=== PATIENT | female | born 2005 | race Caucasian/White ===

== ENCOUNTER 2023-02-12 02:29 | Emergency (ER) | payer BC ==
[2023-02-12] MEDS ORDERED: Sodium Chloride 0.9% 10 ML Syringe FLUSH PRN (02:39)
[2023-02-12] MEDS ORDERED: Sodium Chloride 0.9% 1,000 ML IV SCH (02:45)
[2023-02-12] MEDS ORDERED: Promethazine 25 MG/ML SDV IM ONE (02:50)
[2023-02-12] MEDS ORDERED: diphenhydrAMINE 50 MG/ML SDV IVPUSH ONE (02:50)
[2023-02-12] MEDS ORDERED: Ketorolac 30 MG/ML SDV IVPUSH ONE (02:50)
== END 2023-02-12 04:34 | disposition home or self-care (01) ==
LOC: LL.ED 02:29
DX: G43.909 Migraine, unspecified, not intractable, without status migrainosus (principal); K21.9 Gastro-esophageal reflux disease without esophagitis; Z88.2 Allergy status to sulfonamides; Z79.899 Other long term (current) drug therapy
CPT/HCPCS: 96372; 96374; 96375; 99283; 99283-25; J1200; J1885; J2550; J3490; J7030